=== PATIENT | female | born 1980 | race Caucasian/White ===

== ENCOUNTER 2021-11-24 16:45 | Inpatient (IN) | payer SELFPAY ==
[~2021-11-24] VITALS: Ht 157.5 cm; Wt 88.1 kg
--- NOTE | 2021-11-24 16:59 | NUR ---
BIB [facility] FROM HOME FOR WITNESSED SEIZURE (TONIC-CLONIC) LASTED 1-2 MINS. DENIES HX OF SEIZURES. PT DOES NOT RECALL SEIZURE OR ANY EVENTS LEADING UP TO EPISODE. DENIES RECENT FEVER, NEW MEDICATIONS, OR DRUGS. COVID + FROM HOME PER REPORT. AAOX3, LAST THING RECALLS IS GETTING UP AND EATING BREAKFAST. BREATHING EVEN AND UNLABORED, NOT IN RESP DISTRESS, PULSES 2+ BILATERALLY. TO ER BED 8. ON MONITOR. TACHYCARDIC PULSE 110. WILL CONTINUE TO MONITOR.
[2021-11-24] MEDS ORDERED: IV NS 0.9% 1,000 ML BAG IV ONE (18:00)
--- NOTE | 2021-11-24 18:00 | NUR ---
COVID SAMPLE OBTAINED AND SENT TO LAB
--- NOTE | 2021-11-24 18:05 | NUR ---
URINE SAMPLE OBTAINED AND SENT TO LAB
[2021-11-24] MEDS ORDERED: LISD70CA PO (18:23)
[2021-11-24 18:27] LABS: BASOPHILS # (AUTO) 0.1 K/uL (0.0-0.2); BASOPHILS % (AUTO) 0.5 % (0.0-2.0); EOSINOPHILS % (AUTO) 1.3 % (0.0-6.0); HEMATOCRIT 43 % (33-45); HEMOGLOBIN 14.8 g/dL (11.5-14.8); LYMPHOCYTES % (AUTO) 19.6 % (20.0-44.0); MEAN CORPUSCULAR HGB CONC 34 g/dl (31.0-36.0); MEAN CORPUSCULAR VOLUME 89 fL (82-100); MONOCYTES # (AUTO) 0.6 K/uL (0.1-1.30); MONOCYTES % (AUTO) 6.2 % (2.0-12.0); NEUTROPHILS # (AUTO) 7.3 K/uL (1.8-8.9); NEUTROPHILS % (AUTO) 72.4 % (43.0-81.0); PLATELET COUNT (AUTO) 286 K/uL (150-450); RED BLOOD CELL COUNT(AUTO) 4.86 MIL/uL (4.0-5.2)
[2021-11-24 18:32] LABS: CALCIUM, SERUM 8.2 mg/dL (8.5-10.1); CARBON DIOXIDE 24 mmol/L (21-32); CHLORIDE 109 mmol/L (98-107); CREATININE 0.6 mg/dL (0.6-1.3); GLUCOSE 137 mg/dL (74-106); POTASSIUM 3.3 mmol/L (3.5-5.1); SODIUM SERUM 143 mmol/L (136-145); UREA NITROGEN, BLOOD 8 mg/dL (7-18)
[2021-11-24 18:33] LABS: ALCOHOL, BLOOD < 3 mg/dL (0-0)
[2021-11-24 18:47] LABS: ALANINE AMINOTRANSFERASE 32 U/L (12-78); ALBUMIN 3.3 g/dL (3.4-5.0); ALKALINE PHOSPHATASE 75 U/L (46-116); ASPARTATE AMINOTRANSFERASE 19 U/L (15-37); BILIRUBIN,DIRECT 0.1 mg/dL (0.0-0.2); BILIRUBIN,TOTAL 0.5 mg/dL (0.2-1.0); TOTAL PROTEIN, SERUM 6.7 g/dL (6.4-8.2)
--- NOTE | 2021-11-24 18:57 | NUR ---
PT IN CT
[2021-11-24] MEDS ORDERED: LORAZEPAM INJ 2 MG/ML VIAL ONE (19:22)
[2021-11-24] MEDS ORDERED: LORAZEPAM INJ 2 MG/ML VIAL IV ONE (19:30)
--- NOTE | 2021-11-24 20:44 | NUR ---
TELE 104
[2021-11-24] MEDS ORDERED: LEVETIRACETAM (500MG) 1,000 MG in IV NS 0.9% 100 ML IV ONE (21:00)
[2021-11-24] MEDS ORDERED: LEVETIRACETAM (500MG) 500 MG/5 ML VIAL IV ONE (21:17)
--- NOTE | 2021-11-24 21:32 | NUR ---
report given to jose armando saavedra
[2021-11-24 22:00] VITALS: BP 145/85
--- NOTE | 2021-11-24 22:00 | NUR ---
ASSISTANT ART DIRECTOR NOTES: RECEIVED REPORT FROM ER NURSE RED. PT TRANSFERRED FROM ER VIA [facility], PLACED IN ROOM 104 BED 1. DIAGNOSIS OF SEIZURE. PT AWAKE, ALERT/ORIENTED X4 AND VERBALLY RESPONSIVE. BREATHING EVEN AND UNLABORED. ON O2 AT 2L/MIN VIA N/C AND PT TOLERATED WELL. O2 SAT 100%. IV ACCESS ON LAC#20G AND RFA#20G INTACT AND PATENT. NO S/S OF INFILTRATIONS. BODY ASSESSMENT DONE. NOTED SKIN LACERATIONS ON THE TONGUE AND SLIGHT SKIN REDNESS ON RT CHEST AREA. STILL C/O PAIN ON TONGUE AREA. BUT NO ACUTE DISTRESS NOTED. NO OTHER OPEN SKIN OR SKIN DISCOLORATIONS NOTED. PT RAPID COVID POSITIVE. ALL ISOLATION PRECAUTION IN PLACE. TO PREVENT INJURY COVERED BOTH SIDE RAILS WITH LINEN. SEIZURE PRECAUTION IN PLACE. ALL SAFETY MEASURES IN PLACE. BED IN LOWEST POSITION AND LOCKED. SIDE RAILS UP X2, PLACE CALL LIGHT WITH IN REACH. WILL CONTINUE TO MONITOR
--- NOTE | 2021-11-24 22:10 | NUR ---
PT TRANSERRED UNDER ACLS
[2021-11-24] MEDS ORDERED: ONDANSETRON HCL/PF 4 MG/2 ML VIAL IVP PRN (23:30)
[2021-11-24] MEDS ORDERED: ZOLPIDEM TARTRATE 5 MG TABLET PO PRN (23:30)
[2021-11-24] MEDS ORDERED: Z GUARD REMEDY 4 OZ OINT TP PRN (23:30)
[2021-11-24] MEDS ORDERED: MAGNESIUM HYDROXIDE 30 ML UDC PO PRN (23:30)
[2021-11-24] MEDS ORDERED: LORAZEPAM INJ 2 MG/ML VIAL IV PRN (23:30)
[2021-11-24] MEDS ORDERED: MAG HYDROX/AL HYDROX/SIMETH 30 ML UDC PO PRN (23:30)
[2021-11-24] MEDS ORDERED: IV PREMIX D5 1/2NS + KCL 1,000 ML IV PRN (23:45)
[2021-11-25] VITALS (7 sets, daily range): BP systolic 101–127; BP diastolic 56–77
[2021-11-25] MEDS ORDERED: IV PREMIX D5 1/2NS + KCL 1,000 ML IV ONE (00:42)
[2021-11-25] MEDS: ACETAMINOPHEN 325 MG TABLET PO PRN ×2 (00:51→21:02)
--- NOTE | 2021-11-25 00:53 | NUR ---
RN NOTES: PT C/O TONGUE PAIN, 3/10 PAIN SCALE. TYLENOL 325 MG 2 TABS GIVEN AND PT TOLERATED WELL. WILL CONTINUE TO MONITOR
[2021-11-25 06:05] LABS: BASOPHILS % (AUTO) 0.1 % (0.0-2.0); EOSINOPHILS % (AUTO) 1.3 % (0.0-6.0); HEMATOCRIT 38 % (33-45); HEMOGLOBIN 13.1 g/dL (11.5-14.8); LYMPHOCYTES # (AUTO) 2.8 K/uL (0.8-4.8); LYMPHOCYTES % (AUTO) 25.2 % (20.0-44.0); MEAN CORPUSCULAR HGB CONC 35 g/dl (31.0-36.0); MEAN CORPUSCULAR VOLUME 87 fL (82-100); MONOCYTES # (AUTO) 0.8 K/uL (0.1-1.30); MONOCYTES % (AUTO) 6.8 % (2.0-12.0); NEUTROPHILS # (AUTO) 7.3 K/uL (1.8-8.9); NEUTROPHILS % (AUTO) 66.6 % (43.0-81.0); PLATELET COUNT (AUTO) 258 K/uL (150-450)
[2021-11-25 06:22] LABS: CALCIUM, SERUM 7.7 mg/dL (8.5-10.1); CREATININE 0.6 mg/dL (0.6-1.3); PHOSPHORUS 2.7 mg/dL (2.5-4.9); POTASSIUM 3.2 mmol/L (3.5-5.1)
--- NOTE | 2021-11-25 06:33 | NUR ---
RN CLOSING NOTES: PT SLEEPING IN BED BUT EASILY AROUSABLE, ALERT/ORIENTED X4 AND VERBALLY RESPONSIVE. BREATHING EVEN AND UNLABORED. ON O2 AT 2L/MIN VIA N/C AND PT TOLERATED WELL. O2 SAT 100%. IV ACCESS ON LAC#20G AND RFA#20G INTACT AND PATENT. NO S/S OF INFILTRATIONS. RUNNING D51/2 NS +KCL AT 125CC/HR. SLEPT THROUGH ALL NIGHT. NO C/O PAIN OR DISCOMFORT. NO ACUTE DISTRESS. ALL ISOLATION PRECAUTION IN PLACE. SEIZURE PRECAUTION IN PLACE. ALL SAFETY MEASURES IN PLACE. BED IN LOWEST POSITION AND LOCKED. SIDE RAILS UP X2, PLACE CALL LIGHT WITH IN REACH. WILL ENDORSE TO MORNING SHIFT NURSE.
--- NOTE | 2021-11-25 07:30 | NUR ---
RN OPENING NOTE PATIENT IS IN BED, ASLEEP BUT EASILY AROUSABLE, ALERT ORIENTED X 4. WITH LACERATION ON TONGUE, AWAITING WOUND CONSULT. ON NPO. WITH LEFT ANTECUBITAL IV SALINE LOCK GAUGE 20, INTACT AND PATENT. WITH RIGHT FOREARM IV LINE GAUGE 20 INFUSING WITH D5 1/2 + KCL AT 125 ML/HR. NO INFILTRATION OR PHLEBITIS NOTED ON BOTH IV SITES. BREATHING UNLABORED AND NOT IN ANY FORM OF DISTRESS. SINUS RHYTHM AT70 BPM ON TEXTILE SCRAP SALVAGER. ALL HOSPITAL PRECAUTIONS IN PLACE. BED IS LOCKED IN LOWEST POSITION, 3 SIDE RAILS UP, CALL LIGHT WITHIN REACH. WILL CONTINUE TO MONITOR THROUGHOUT SHIFT.
[2021-11-25 08:19] LABS: THYROID STIMULATING HORMONE 1.507 uIU/mL (0.358-3.74)
[2021-11-25] MEDS ORDERED: IV PREMIX D5 1/2NS + KCL 1,000 ML IV PRN (08:54)
[2021-11-25] MEDS ORDERED: PANTOPRAZOLE 40 MG VIAL IV SCH (09:00)
[2021-11-25] MEDS ORDERED: LEVETIRACETAM (500MG) 500 MG in IV NS 0.9% 100 ML IV SCH (09:00)
[2021-11-25] MEDS: ENOXAPARIN SODIUM 40 MG/0.4 ML DISP.SYRIN SQ SCH (09:50)
--- NOTE | 2021-11-25 09:50 | NUR ---
WOUND CARE CONSULT: REVIEWED CHART, NURSING DOCUMENTATION AND PHOTO WHICH INDICATES TONGUE REDNESS/ABRASION, PRESENT ON ADMISSION. DISCUSSED WITH CLOTH DESIZING RANGE OPERATOR CHIEF AND SLUDGE MILL OPERATOR. PT WAS EXAMINED BY DR LOOMIS FOR TONGUE ISSUE. DEFER TO PMD. DISCUSSED WITH NURSING STAFF.
[2021-11-25] MEDS ORDERED: POTASSIUM CHLORIDE 20 MEQ POWDER PACKET PO SCH (10:00)
[2021-11-25] MEDS: IV PREMIX D5 1/2NS + KCL 1,000 ML IV PRN ×2 (12:57→21:41)
[2021-11-25] MEDS: LIDOCAINE VISCOUS 2% UD 15 ML UDC MM PRN ×2 (13:09→20:53)
--- NOTE | 2021-11-25 18:31 | NUR ---
RN CLOSING NOTE PATIENT IS IN BED ON ROOM AIR AND O2 SATURATION REMAINS AT 98%. NO SEIZURES NOTED DURING THE ENTIRE SHIFT. PATIENT IS STABLE THROUGHOUT SHIFT. RIGHT FOREARM SALINE LOCK INTACT AND PATENT. WITH LEFT ANTECUBITAL IV LINE INFUSING WITH D5 1/2 NSS + KCL AT 125 ML/HR. NOT IN ANY FORM OF DISTRESS. ALL HOSPITAL SAFETY MEASURES IN PLACE. 3 SIDE RAILS UP, BED IS LOCKED IN LOWEST POSITION, CALL LIGHT WITHIN REACH. WILL ENDORSE TO FURNACE CHARGER NURSE.
[2021-11-25] MEDS: LEVETIRACETAM (250 MG) 250 MG TABLET PO SCH (20:10)
--- NOTE | 2021-11-25 20:47 | NUR ---
tower hand Opening Note Pt received in bed awake, A&O x4, calm, cooperative. Currently on RA with O2sat 100%; no s/s of resp distress, no SOB noted, non-labored and equal breathing. Attached on external monitor, currently SR with HR 85; no complaint of chest pain/discomfort. Pt noted to have laceration on tongue and per pt report she had bit her tongue during a seizure episode; currently complains of 10/10 pain. Pt noted to be ambulatory with steady gait. RFA 20G and LAC 20G intact and patent, with no s/s of infiltration, flushes easily with no resistance; currently has D5 1/2 NS and KCL at 125 ml/hr. Bed in lowest position, call light within reach, side rails up x2. Will continue to monitor throughout the night.
--- NOTE | 2021-11-25 20:54 | NUR ---
RN Note Patient complains of pain on her tongue that especially hurts when talking. Patient requests for lidocaine oral solution.
--- NOTE | 2021-11-25 21:03 | NUR ---
RN Note Patient also requests for Tylenol for the pain and discomfort she has on her tongue. Patient given Tylenol 650 mg. Will monitor for effectiveness.
[2021-11-26] VITALS: BP 101/57
[2021-11-26 04:00] VITALS: BP 107/68
[2021-11-26] MEDS: IV PREMIX D5 1/2NS + KCL 1,000 ML IV PRN (06:14)
[2021-11-26 06:18] LABS: BASOPHILS % (AUTO) 0.4 % (0.0-2.0); EOSINOPHILS % (AUTO) 2.3 % (0.0-6.0); HEMATOCRIT 37 % (33-45); LYMPHOCYTES # (AUTO) 2.7 K/uL (0.8-4.8); LYMPHOCYTES % (AUTO) 31.7 % (20.0-44.0); MEAN CORPUSCULAR HGB CONC 35 g/dl (31.0-36.0); MEAN CORPUSCULAR VOLUME 88 fL (82-100); MONOCYTES # (AUTO) 0.6 K/uL (0.1-1.30); MONOCYTES % (AUTO) 6.7 % (2.0-12.0); NEUTROPHILS # (AUTO) 5.1 K/uL (1.8-8.9); NEUTROPHILS % (AUTO) 58.9 % (43.0-81.0); PLATELET COUNT (AUTO) 256 K/uL (150-450); RED BLOOD CELL COUNT(AUTO) 4.25 MIL/uL (4.0-5.2); WHITE BLOOD COUNT (AUTO) 8.6 K/uL (4.3-11.0)
[2021-11-26 06:32] LABS: CALCIUM, SERUM 7.9 mg/dL (8.5-10.1); CREATININE 0.7 mg/dL (0.6-1.3); POTASSIUM 3.5 mmol/L (3.5-5.1)
--- NOTE | 2021-11-26 07:17 | NUR ---
spice mixer Closing Note Pt in bed asleep but easily arousable; A&O x4, slept well throughout the night. Remains on RA with O2sat ranging from 97%-100% throughout the night; no s/s of resp distress, no SOB noted, non-labored and equal breathing. Attached on external monitor, currently SR with HR 74. Pt reports the Tylenol helped the pain on her tongue a little bit, but there's still discomfort. RFA 20G and LAC 20G remains intact and patent, with no s/s of infiltration, flushes easily with no resistance; continues to have D5 1/2 NS and KCL at 125 ml/hr. Bed in lowest position, call light within reach, side rails up x2. Will continue to monitor throughout the night. Addendum: 11/26/21 at 0730 by PRINCESS SEXTON RN Will endorse to [facility] nurse to continue care.
--- NOTE | 2021-11-26 07:39 | NUR ---
RN OPENING NOTE PATIENT IS IN BED, AWAKE,ALERT AND ORIENTED X4. ON ROOM AIR AT 97%. SINUS RHYTHM AT 73 BPM ON FIELD PRODUCER. WITH RIGHT FOREARM GAUGE 20 SALINE LOCK, INTACT AND PATENT. WITH LEFT ANTECUBITAL LINE GAUGE 20 INFUSING WITH D5 1/2 NS + KCL AT 125 ML/HR. NO NOTED INFILTRATION OR PHLEBITIS ON IV INSERTION SITES. BREATHING UNLABORED AND NOT IN ANY FORM OF DISTRESS. BED IS LOCKED IN LOWEST POSITION, 3 SIDE RAILS UP, CALL LIGHT WITHIN REACH. WILL CONTINUE TO MONITOR THROUGHOUT SHIFT.
[2021-11-26 08:00] VITALS: BP 113/78
[2021-11-26] MEDS ORDERED: PANTOPRAZOLE 40 MG TABLET.DR PO SCH (08:25)
[2021-11-26] MEDS: LEVETIRACETAM (250 MG) 250 MG TABLET PO SCH (08:47)
[2021-11-26] MEDS: ENOXAPARIN SODIUM 40 MG/0.4 ML DISP.SYRIN SQ SCH (08:48)
[2021-11-26 12:00] VITALS: BP 110/77
[2021-11-26] MEDS ORDERED: LEVE250T2 PO (15:05)
[2021-11-26 16:00] VITALS: BP 128/69
--- NOTE | 2021-11-26 16:44 | NUR ---
RN CLOSING NOTE PATIENT IS DISCHARGED TO HOME IN STABLE CONDITION. DISCHARGE INSTRUCTIONS GIVEN AND EXPLAINED TO PATIENT. VERBALIZED UNDERSTANDING. TONGUE WOUND PHOTOGRAPHED AND DOCUMENTED PER HOSPITAL POLICY. ALL FORMS SIGNED AND COMPLETED. ALL BELONGINGS SENT HOME. SALINE LOCK ON BOTH ARMS REMOVED, WITH CATHETER TIP COMPLETE AND INTACT. NO COMPLICATIONS NOTED. ASSISTED PATIENT ON WHEELCHAIR TO THE LOBBY AND INTO THE PATIENT'S CAR DRIVEN BY PATIENT'S MOTHER. DISCHARGE VITAL SIGNS: T 98.3, HR 70, RR 20, O2 SAT 97%, BP 128/69.
== END 2021-11-26 16:30 | disposition home or self-care (01) | DRG 100 ==
LOC: ER 16:52 → TELE1 20:45
PROVIDERS: ADMIT Student in an Organized Health Care Education/Training Program; ATTEND Family Medicine
DX: R56.9 Unspecified convulsions (principal); U07.1 COVID-19; E44.1 Mild protein-calorie malnutrition; E88.09 Other disorders of plasma-protein metabolism, not elsewhere classified; E87.6 Hypokalemia; F12.90 Cannabis use, unspecified, uncomplicated; F98.8 Other specified behavioral and emotional disorders with onset usually occurring in childhood and adolescence
CPT/HCPCS: 36415; 70450-TC; 71045-TC; 80048-TC; 80061-TC; 80076-TC; 83735-TC; 84100-TC; 84443-TC; 84484-TC; 84703-TC; 85025-TC; 85378-TC; 86140-TC; 87081-TC; 94799-TC; 95819-TC; 97116-TC; 97530-TC; C9113; C9803; G0378; G0480; J1650; J1953; J2060; J3490; J7030; J7050; U0003